=== PATIENT | male | born 1980 | race African-American/Black ===

== ENCOUNTER 2016-11-04 22:36 | Emergency (ER) | payer SELFPAY ==
[~2016-11-04] VITALS: Ht 177.8 cm; Wt 70.0 kg
[2016-11-04 22:47] VITALS: BP 140/98; PULSE 86; RESP 15; TEMP 98.5; O2SAT 99
--- NOTE | 2016-11-04 23:45 | RADRPT ---
EXAM DATE/TIME: 11/04/2016 23:24 [place] COMPARISON: No previous studies available for comparison. INDICATIONS : Neck pain after waking. No known trauma. MEDICAL HISTORY : None. SURGICAL HISTORY : None. ENCOUNTER: Initial ACUITY: 2 days PAIN SCORE: 8/10 LOCATION: Bilateral neck FINDINGS: Two projection examination was performed. There is normal alignment and curvature of the vertebral b odies down to the level of C7. No evidence of fracture or subluxation. Vertebral body height is yokasta ntained. The disc spaces are maintained. The prevertebral soft tissues are of normal thickness. Th e atlanto-axial articulation is intact. CONCLUSION: Normal radiographic appearance of the cervical spine. Jd Hayes MD on November 04, 2016 at 23:43 Board Certified Radiologist. This report was verified electronically.
[2016-11-04] MEDS ORDERED: CYCL1TAB29 PO (23:55)
[2016-11-04] MEDS ORDERED: DICL75TA PO (23:55)
--- NOTE | 2016-11-04 23:59 | PD ---
HPI Chief Complaint: Pain: Acute or Chronic Time Seen by Provider: 23:55 Travel History International Travel<30 days: No Contact w/Intl Traveler<30days: No Traveled to known affect area: No History of Present Illness HPI 36-year-old black male presents emergency Department with complains of right sided neck pain for the last day. He states that he woke up in the morning with pain. He denies any injury. He states that he does not recall laying on the counter doing anything in all 4 position prior to this. He denies any recent illness. No prior neck problems. States the pain is mild to moderate. Worse with movement or twisting of his head. PFSH Past Medical History Medical History: Denies Significant Hx Immunizations Current: Yes Tetanus Vaccination: > 5 Years Influenza Vaccination: No Past Surgical History Surgical History: No Previous Surgery Social History Alcohol Use: Yes Tobacco Use: Yes Substance Use: No Allergies-Medications (Allergen,Severity, Reaction): Coded Allergies: No Known Allergies (Unverified , 11/04/16) Reported Meds & Prescriptions Reported Meds & Active Scripts Active Flexeril (Cyclobenzaprine HCl) 10 Mg Tab 10 Mg PO TID Diclofenac Sodium DR (Diclofenac Sodium) 75 Mg Tabdr 75 Mg PO BID Review of Systems Except as stated in HPI: all other systems reviewed are Neg Musculoskeletal: Positive: Myalgias, Arthralgias, Cramping, Pain, No: Limited ROM, Weakness Physical Exam Narrative GENERAL: Well-developed, well-nourished in no apparent distress. Nontoxic appearing. HEAD: Normocephalic, atraumatic. EYES: Pupils equal round and reactive. Extraocular motions intact. No scleral icterus. No injection or drainage. ENT: Nose clear. Throat without erythema, tonsillar hypertrophy or exudate. Uvula midline. Airway patent. NECK: Trachea midline. Supple, tender right paracervical musculature with mild spasm, moves head freely. No central bony tenderness. CARDIOVASCULAR: Regular rate and rhythm without murmurs, gallops, or rubs. RESPIRATORY: Clear to auscultation. Breath sounds equal bilaterally. No wheezes , rales, or rhonchi. GASTROINTESTINAL: Abdomen soft, non-tender, nondistended. No hepato-splenomegaly , or palpable masses. No guarding. EXTREMITIES: No clubbing, cyanosis, or edema. No joint tenderness. BACK: Nontender without deformity. No flank tenderness. NEUROLOGICAL: Awake, alert and oriented x 3 .Cranial nerves grossly intact. Motor and sensory grossly within normal limits. Normal speech. Data Data Last Documented VS Vital Signs Date Time Temp Pulse Resp B/P Pulse Ox O2 Delivery O2 Flow Rate FiO2 11/04/16 22:47 98.5 86 15 140/98 99 Room Air Orders Spine, Cervical - Ltd (Ap&Lat) (11/04/16 23:11) Naproxen (Naprosyn) (11/05/16 00:00) Cyclobenzaprine (Flexeril) (11/05/16 00:00) [facility] Medical Decision Making Medical Screen Exam Complete: Yes Emergency Medical Condition: Yes Medical Record Reviewed: Yes Interpretation(s) Last 24 hours Impressions Cervical Spine X-Ray 11/04/16 1583 Signed Impressions: Service Date/Time: Friday, November 04, 2016 23:24 - CONCLUSION: Normal radiographic appearance of the cervical spine. Jd Hayes MD Differential Diagnosis MDM: High Differential diagnoses: sprain, strain, HNP, spasm Narrative Course Patient is given Flexeril 10 mg and Naprosyn 500 mg by mouth. This is neck spasm Diagnosis Primary Impression: Neck muscle spasm Patient Instructions: General Instructions Departure Forms: Tests/Procedures, Work Release Special Instructions: No work 3 days. Additional Instructions: Rest. Ice for the next 3 days followed by heat . Flexeril and Voltaren. Follow-up with a primary care doctor in one week. Return to the ER for emergencies. Med/Other Pt SpecificInfo: Prescription(s) given Scripts Cyclobenzaprine (Flexeril)10 Mg Tab10 Mg PO TID #30 TAB Prov:Annel Lutz MD 11/04/[address] 75 Mg Tabdr75 Mg PO BID #20 TAB Prov:Annel Lutz MD 11/04/16 Disposition: 01 DISCHARGE HOME Condition: Stable Silvano Plascencia Nov 04, 2016 23:59
[2016-11-05] MEDS ORDERED: NAPROXEN 500 MG TAB PO ONE
[2016-11-05] MEDS ORDERED: CYCLOBENZAPRINE HCL 10 MG TAB PO ONE
== END 2016-11-05 00:15 | disposition home or self-care (01) ==
LOC: NEPD 22:36
DX: M62.838 Other muscle spasm (principal); M54.2 Cervicalgia; Z72.0 Tobacco use
CPT/HCPCS: 72040; 99283